=== PATIENT | female | born 1990 | race Caucasian/White ===

== ENCOUNTER 2016-09-28 19:05 | Emergency (ER) | payer SELFPAY ==
[~2016-09-28] VITALS: Ht 170.2 cm; Wt 63.6 kg
[~2016-09-28 19:05] MED LIST: AMOXICILLIN 50500 MG PO; CEFTIN500 MG PO; DIAZEPAM5 MG PO; FLAGYL500 MG PO; FLINTSTONES COM1 CT1 PO; FLINTSTONES1 CTB PO; INDERAL 10MG10 MG PO; INDERAL 20MG20 MG PO; MACROBID 1100 MG/CAP PO; MOTRIN600 MG PO; NO HOME MEDICATIONS; NORCO 325 MG-51 TAB PO; PEPCID 20MG TAB20 MG PO; PHENERGAN 25 TA25 MG PO; PHENERGAN25 MG RC; PRISTIQ50 M1 PO; SEROQUEL25 MG PO; TAPAZOLE PO; TESSALON PERLE100 MG PO; ZOFRAN 4MG T4 MG/TAB PO; ZOFRAN ODT4 MG PO; [UNRECOGNIZED DRUG - REMARK]
[2016-09-28 19:07] VITALS: BP 125/78; TEMP 98.7
[2016-09-28] MEDS ORDERED: PREDNISONE20 MG PO (20:04)
[2016-09-28] MEDS ORDERED: NORCO 325 MG-51 TAB PO (20:04)
[2016-09-28] MEDS ORDERED: FLEXERIL 1010 MG/TAB PO (20:04)
[2016-09-28 20:26] VITALS: PULSE 66
== END 2016-09-28 20:26 | disposition home or self-care (01) ==
LOC: COL.ER 19:05
DX: S73.101A Unspecified sprain of right hip, initial encounter (principal); M54.10 Radiculopathy, site unspecified; G40.909 Epilepsy, unspecified, not intractable, without status epilepticus; V18.4XXA Pedal cycle driver injured in noncollision transport accident in traffic accident, initial encounter; X50.0XXA Overexertion from strenuous movement or load, initial encounter; Y93.I9 Activity, other involving external motion; Y92.410 Unspecified street and highway as the place of occurrence of the external cause
CPT/HCPCS: J7512

== ENCOUNTER 2016-10-14 11:09 | Emergency (ER) | payer SELFPAY ==
[~2016-10-14] VITALS: Ht 170.2 cm; Wt 63.6 kg
[~2016-10-14 11:09] MED LIST changes: +FLEXERIL 1010 MG/TAB PO; +PREDNISONE20 MG PO
[2016-10-14 11:15] VITALS: BP 126/68; PULSE 118; TEMP 98.5
[2016-10-14] MEDS ORDERED: ULTRAM 50MG TAB50 MG PO (11:48)
== END 2016-10-14 11:56 | disposition home or self-care (01) ==
LOC: COL.ER 11:09
DX: M25.551 Pain in right hip (principal); F41.9 Anxiety disorder, unspecified; F43.10 Post-traumatic stress disorder, unspecified; Z98.51 Tubal ligation status; Z87.891 Personal history of nicotine dependence; Z87.39 Personal history of other diseases of the musculoskeletal system and connective tissue; Z87.19 Personal history of other diseases of the digestive system

== ENCOUNTER 2017-04-17 11:52 | Emergency (ER) | payer SELFPAY ==
[~2017-04-17] VITALS: Ht 172.7 cm; Wt 65.9 kg
[~2017-04-17 11:52] MED LIST changes: +ULTRAM 50MG TAB50 MG PO
[2017-04-17 11:59] VITALS: TEMP 98
[2017-04-17] MEDS ORDERED: ADVIL200 MG PO (12:19)
[2017-04-17 12:36] LABS: COLLECTION METHOD CLEAN CATCH
[2017-04-17 12:40] LABS: BASO # 0.1 (0.0-0.2); BASO % 0.9 % (0.0-2.0); EOS # 0.2 (0.0-0.7); EOS % 3.3 % (0-4.0); GRAN # 3.6 (1.4-6.5); GRAN % 55.1 % (42.2-75.2); HEMOGLOBIN 12.1 g/dl (12.5-16.0); LYMPH # 2.3 (1.2-3.4); LYMPH % 34.3 % (20.0-51.0); MEAN CELL VOLUME 85 fl (80.0-100.0); MEAN CORPUSCULAR HEMOGLOBIN 28 pg (27.0-31.0); MEAN CORPUSCULAR HGB CONC 33 g/dl (33.0-37.0); MEAN PLATELET VOLUME 10.8 fl (7.4-10.4); MONO # 0.4 (0.1-0.6); MONO % 6.1 % (1.7-9.3); PLATELET COUNT 264 K/mm3 (130-400); RED BLOOD COUNT 4.34 M/mm3 (4.10-5.30); REDCELL DISTRIBUTION WIDTH-CV 14.6 % (11.5-14.5)
[2017-04-17 12:43] LABS: HEMATOCRIT 36.8 % (37.0-47.0)
[2017-04-17 12:46] LABS: PH 8 (5-8); SQUAMOUS EPITHELIAL 0-2 /hpf; URINE APPEARANCE Clear; URINE BACTERIA None Seen /hpf; URINE BILIRUBIN Negative (NEGATIVE); URINE BLOOD Negative (NEGATIVE); URINE COLOR Straw; URINE GLUCOSE Negative (NEGATIVE); URINE KETONE Negative (NEGATIVE); URINE LEUKOCYTE ESTERASE Negative (NEGATIVE); URINE NITRATE Negative (NEGATIVE); URINE PROTEIN(semi-quant) Negative (NEGATIVE); URINE RBC 0-2 /hpf; URINE UROBILINOGEN Negative (NEGATIVE)
[2017-04-17 12:52] LABS: ALBUMIN 4.4 gm/dL (3.5-5.0); BILIRUBIN,TOTAL 0.4 mg/dL (0.0-1.0); C-REACTIVE PROTEIN 1.3 mg/dL (0.0-0.9); CALCIUM 9.5 mg/dL (8.4-10.2); CREATININE, serum 0.61 mg/dL (0.52-1.25); POTASSIUM 3.9 mmol/L (3.4-5.0)
[2017-04-17] MEDS ORDERED: NORCO 325 MG-51 TAB PO (15:06)
[2017-04-17 18:00] VITALS: BP 120/78; PULSE 81
== END 2017-04-17 13:56 | disposition home or self-care (01) ==
LOC: COL.ER 11:52
PROVIDERS: Emergency Medicine
DX: R10.2 Pelvic and perineal pain (principal)
CPT/HCPCS: J1170; J1885; J2405; J7030

== ENCOUNTER 2018-07-30 13:04 | Emergency (ER) | payer MEDICAID ==
[~2018-07-30] VITALS: Ht 172.7 cm; Wt 66.4 kg
[~2018-07-30 13:04] MED LIST changes: +ADVIL200 MG PO
[2018-07-30 13:16] VITALS: BP 111/76
[2018-07-30 15:25] VITALS: PULSE 80; TEMP 97.5
== END 2018-07-30 15:27 | disposition home or self-care (01) ==
LOC: COL.ER 13:04
DX: G43.909 Migraine, unspecified, not intractable, without status migrainosus (principal); M79.7 Fibromyalgia; F41.9 Anxiety disorder, unspecified; F43.10 Post-traumatic stress disorder, unspecified; Z86.19 Personal history of other infectious and parasitic diseases; Z98.51 Tubal ligation status
CPT/HCPCS: J1200; J1885; J2765; J7030

== ENCOUNTER 2019-04-13 11:21 | Emergency (ER) | payer MEDICAID ==
[~2019-04-13] VITALS: Ht 172.7 cm; Wt 65.9 kg
[2019-04-13 11:38] VITALS: TEMP 97.6
[2019-04-13 11:53] LABS: COLLECTION METHOD CLEAN CATCH
[2019-04-13 12:11] LABS: MUCOUS Present /lpf; PH 6 (5-8); SQUAMOUS EPITHELIAL 0-2 /hpf; URINE APPEARANCE Clear; URINE BACTERIA None Seen /hpf; URINE BILIRUBIN Negative (NEGATIVE); URINE BLOOD Negative (NEGATIVE); URINE COLOR Yellow; URINE GLUCOSE Negative (NEGATIVE); URINE KETONE Negative (NEGATIVE); URINE LEUKOCYTE ESTERASE Negative (NEGATIVE); URINE NITRATE Negative (NEGATIVE); URINE PROTEIN(semi-quant) Negative (NEGATIVE); URINE RBC 0-2 /hpf; URINE UROBILINOGEN Negative (NEGATIVE)
[2019-04-13 12:29] LABS: BASO # 0.1 (0.0-0.2); BASO % 0.6 % (0.0-2.0); EOS # 0.1 (0.0-0.7); EOS % 1.4 % (0-4.0); GRAN # 5.6 (1.4-6.5); GRAN % 67.7 % (42.2-75.2); HEMOGLOBIN 10.7 g/dl (12.5-16.0); LYMPH % 24.2 % (20.0-51.0); MEAN CELL VOLUME 87 fl (80.0-100.0); MEAN CORPUSCULAR HEMOGLOBIN 28 pg (27.0-31.0); MEAN CORPUSCULAR HGB CONC 32 g/dl (33.0-37.0); MEAN PLATELET VOLUME 10.1 fl (7.4-10.4); MONO # 0.4 (0.1-0.6); MONO % 4.9 % (1.7-9.3); PLATELET COUNT 255 K/mm3 (130-400); RED BLOOD COUNT 3.83 M/mm3 (4.10-5.30); REDCELL DISTRIBUTION WIDTH-CV 15.3 % (11.5-14.5)
[2019-04-13 12:36] LABS: HEMATOCRIT 33.4 % (37.0-47.0)
[2019-04-13 12:51] LABS: ALANINE AMINOTRANSFERASE 14 U/L (9-52); ALBUMIN 4.2 gm/dL (3.5-5.0); ALKALINE PHOSPHATASE 57 U/L (50-136); ANION GAP 8 mmol/L (7-16); AST,SGOT 23 U/L (15-37); BILIRUBIN,TOTAL 0.4 mg/dL (0.0-1.0); BLOOD UREA NITROGEN 12 mg/dL (7-17); CALCIUM 8.7 mg/dL (8.4-10.2); CARBON DIOXIDE 25 mmol/L (22-30); CHLORIDE 107 mmol/L (98-107); CREATININE, serum 0.66 (0.52-1.25); GLUCOSE 94 mg/dL (74-106); POTASSIUM 3.8 mmol/L (3.4-5.0); SODIUM 140 mmol/L (137-145); TOTAL PROTEIN 7.4 gm/dL (6.4-8.2)
[2019-04-13 12:54] LABS: C-REACTIVE PROTEIN < 0.5 mg/dL (0.0-0.9)
[2019-04-13 14:06] VITALS: BP 120/75; PULSE 75
== END 2019-04-13 14:08 | disposition home or self-care (01) ==
LOC: COL.ER 11:21
PROVIDERS: Emergency Medicine; Physician Assistant
DX: B34.9 Viral infection, unspecified (principal); M79.7 Fibromyalgia; Z87.891 Personal history of nicotine dependence; Z98.51 Tubal ligation status

== ENCOUNTER 2019-04-17 06:54 | Emergency (ER) | payer MEDICAID ==
[~2019-04-17] VITALS: Ht 172.7 cm; Wt 63.6 kg
[2019-04-17 07:01] VITALS: BP 114/67; TEMP 97.5
[2019-04-17 08:23] LABS: BASO % 0.4 % (0.0-2.0); EOS # 0.2 (0.0-0.7); EOS % 2.3 % (0-4.0); GRAN # 7.3 (1.4-6.5); GRAN % 76.5 % (42.2-75.2); HEMATOCRIT 35.6 % (37.0-47.0); HEMOGLOBIN 11.4 g/dl (12.5-16.0); LYMPH # 1.5 (1.2-3.4); LYMPH % 15.9 % (20.0-51.0); MEAN CELL VOLUME 86 fl (80.0-100.0); MEAN CORPUSCULAR HEMOGLOBIN 28 pg (27.0-31.0); MEAN CORPUSCULAR HGB CONC 32 g/dl (33.0-37.0); MEAN PLATELET VOLUME 10.7 fl (7.4-10.4); MONO # 0.4 (0.1-0.6); MONO % 4.5 % (1.7-9.3); PLATELET COUNT 280 K/mm3 (130-400); RED BLOOD COUNT 4.14 M/mm3 (4.10-5.30); REDCELL DISTRIBUTION WIDTH-CV 15.1 % (11.5-14.5)
[2019-04-17 08:30] LABS: ALANINE AMINOTRANSFERASE 15 U/L (9-52); ALBUMIN 4.2 gm/dL (3.5-5.0); ALKALINE PHOSPHATASE 64 U/L (50-136); ANION GAP 9 mmol/L (7-16); AST,SGOT 19 U/L (15-37); BILIRUBIN,TOTAL 0.3 mg/dL (0.0-1.0); BLOOD UREA NITROGEN 16 mg/dL (7-17); CALCIUM 8.7 mg/dL (8.4-10.2); CARBON DIOXIDE 24 mmol/L (22-30); CHLORIDE 108 mmol/L (98-107); CREATININE, serum 0.67 (0.52-1.25); GLUCOSE 101 mg/dL (74-106); POTASSIUM 3.7 mmol/L (3.4-5.0); SODIUM 141 mmol/L (137-145); TOTAL PROTEIN 7.6 gm/dL (6.4-8.2)
[2019-04-17 08:31] LABS: C-REACTIVE PROTEIN < 0.5 mg/dL (0.0-0.9)
[2019-04-17 08:37] LABS: COLLECTION METHOD CLEAN CATCH
[2019-04-17 08:50] LABS: PH 7 (5-8); SQUAMOUS EPITHELIAL 0-2 /hpf; URINE APPEARANCE Clear; URINE BACTERIA Rare /hpf; URINE BILIRUBIN Negative (NEGATIVE); URINE BLOOD 1+ (NEGATIVE); URINE COLOR Yellow; URINE GLUCOSE Negative (NEGATIVE); URINE KETONE Negative (NEGATIVE); URINE LEUKOCYTE ESTERASE Negative (NEGATIVE); URINE NITRATE Negative (NEGATIVE); URINE PROTEIN(semi-quant) Negative (NEGATIVE); URINE RBC 0-2 /hpf; URINE UROBILINOGEN Negative (NEGATIVE)
[2019-04-17] MEDS ORDERED: ZOFRAN ODT4 MG PO (08:54)
[2019-04-17 09:15] VITALS: PULSE 83
== END 2019-04-17 09:15 | disposition home or self-care (01) ==
LOC: COL.ER 06:54
PROVIDERS: Physician Assistant
DX: B34.9 Viral infection, unspecified (principal); F32.9 Major depressive disorder, single episode, unspecified; F41.9 Anxiety disorder, unspecified; Z87.891 Personal history of nicotine dependence; Z98.51 Tubal ligation status

== ENCOUNTER → 2019-10-10 | Emergency (ER) | payer MEDICAID ==
[~2019-10-10] VITALS: Ht 172.7 cm; Wt 65.9 kg
[2019-10-10 20:58] VITALS: BP 127/86; PULSE 82; TEMP 98.9
== END ==
LOC: COL.ER 20:41
DX: K08.89 Other specified disorders of teeth and supporting structures (principal)

== ENCOUNTER 2020-07-20 01:18 | Emergency (ER) | payer MEDICAID ==
[~2020-07-20] VITALS: Ht 172.7 cm; Wt 79.1 kg
[~2020-07-20 01:18] MED LIST changes: +PERCOCET 325 MG1 TA2 PO
[2020-07-20] MEDS ORDERED: TYLENOL 325MG325 MG PO (01:47)
[2020-07-20] MEDS ORDERED: MOTRIN 400400 MG/TAB PO (01:47)
[2020-07-20] MEDS ORDERED: AMOXICILLIN 8751 TAB PO (01:47)
[2020-07-20] MEDS ORDERED: ROXICODONE 55 MG/TAB PO (01:48)
[2020-07-20 02:07] VITALS: BP 126/87; PULSE 78; TEMP 98
== END 2020-07-20 02:09 | disposition home or self-care (01) ==
LOC: COL.ER 01:18
DX: K04.7 Periapical abscess without sinus (principal); Z91.040 Latex allergy status
CPT/HCPCS: J1885; J2270

== ENCOUNTER 2020-07-21 18:10 | Emergency (ER) | payer MEDICAID ==
[~2020-07-21] VITALS: Ht 172.7 cm; Wt 79.5 kg
[~2020-07-21 18:10] MED LIST changes: +AMOXICILLIN 8751 TAB PO; +MOTRIN 400400 MG/TAB PO; +ROXICODONE 55 MG/TAB PO; +TYLENOL 325MG325 MG PO
[2020-07-21 18:17] VITALS: TEMP 97.8
[2020-07-21 18:40] VITALS: BP 113/80; PULSE 75
== END 2020-07-21 18:45 | disposition home or self-care (01) ==
LOC: COL.ER 18:10
DX: K04.7 Periapical abscess without sinus (principal); Z87.891 Personal history of nicotine dependence; Z91.040 Latex allergy status
CPT/HCPCS: J1885

== ENCOUNTER 2021-06-24 20:50 | Emergency (ER) | payer MEDICAID ==
[~2021-06-24] VITALS: Ht 172.7 cm; Wt 77.3 kg
[2021-06-24 21:36] LABS: BASO % 0.7 % (0.0-2.0); EOS # 0.1 K/mm3 (0.0-0.7); EOS % 2.1 % (0.0-4.0); HEMATOCRIT 37.7 % (37.0-47.0); HEMOGLOBIN 12.8 g/dl (12.5-16.0); LYMPH # 2.3 K/mm3 (1.2-3.4); LYMPH % 38.9 % (20.0-51.0); MEAN CELL VOLUME 83 fl (80.0-100.0); MEAN CORPUSCULAR HEMOGLOBIN 28 pg (27-31); MEAN CORPUSCULAR HGB CONC 34 g/dl (33.0-37.0); MONO # 0.4 K/mm3 (0.1-0.6); PLATELET COUNT 325 K/mm3 (130-400); RED BLOOD COUNT 4.57 M/mm3 (4.10-5.30); REDCELL DISTRIBUTION WIDTH-CV 14.1 % (11.5-14.5)
[2021-06-24 21:54] LABS: ALANINE AMINOTRANSFERASE 64 U/L (0-55); ALKALINE PHOSPHATASE 69 U/L (40-150); ANION GAP 13 mmol/L (7-16); AST,SGOT 63 U/L (5-34); BILIRUBIN,TOTAL 0.2 mg/dL (0.2-1.2); BLOOD UREA NITROGEN 12 mg/dL (7-19); CALCIUM 8.9 mg/dL (8.4-10.2); CARBON DIOXIDE 21 mmol/L (22-29); CHLORIDE 105 mmol/L (98-107); CREATININE, serum 0.82 mg/dL (0.57-1.11); GLUCOSE 111 mg/dL (70-99); POTASSIUM 3.4 mmol/L (3.5-4.5); SODIUM 139 mmol/L (136-145); TOTAL PROTEIN 8.1 gm/dL (6.2-8.1)
[2021-06-24 22:04] LABS: TROPONIN-I < 0.010 ng/mL (0.00-0.033)
[2021-06-24] MEDS ORDERED: ZOFRAN ODT4 MG PO (22:13)
[2021-06-24 23:09] VITALS: BP 114/78; PULSE 61; TEMP 97.8
== END 2021-06-24 23:12 | disposition home or self-care (01) ==
LOC: COL.ER 20:50
PROVIDERS: Emergency Medicine
DX: R50.9 Fever, unspecified (principal); F17.200 Nicotine dependence, unspecified, uncomplicated; R00.0 Tachycardia, unspecified; E87.6 Hypokalemia; R94.5 Abnormal results of liver function studies; R11.2 Nausea with vomiting, unspecified; Z20.822 Contact with and (suspected) exposure to COVID-19
CPT/HCPCS: J1885; J2405; J7030

== ENCOUNTER 2021-08-16 21:26 | Emergency (ER) | payer MEDICAID ==
[~2021-08-16] VITALS: Ht 172.7 cm; Wt 65.9 kg
[2021-08-16] MEDS ORDERED: FLEXERIL 1010 MG/TAB PO (22:44)
[2021-08-16] MEDS ORDERED: MEDROL 4MG DOSPA4 MG PO (22:44)
[2021-08-16 23:32] VITALS: BP 123/95; PULSE 89; TEMP 98.5
== END 2021-08-16 23:32 | disposition home or self-care (01) ==
LOC: COL.ER 21:26
DX: M54.16 Radiculopathy, lumbar region (principal); Z91.040 Latex allergy status; Z28.311 Partially vaccinated for COVID-19
CPT/HCPCS: J1885; J2360

== ENCOUNTER 2021-10-26 21:42 | Emergency (ER) | payer MEDICAID ==
[~2021-10-26] VITALS: Ht 172.7 cm; Wt 68.2 kg
[~2021-10-26 21:42] MED LIST changes: +MEDROL 4MG DOSPA4 MG PO
[2021-10-26 21:59] VITALS: TEMP 98
[2021-10-26 23:23] LABS: COLLECTION METHOD CLEAN CATCH
[2021-10-26 23:26] LABS: BASO # 0.1 K/mm3 (0.0-0.2); BASO % 0.6 % (0.0-2.0); EOS # 0.1 K/mm3 (0.0-0.7); EOS % 1.2 % (0.0-4.0); GRAN # 6.9 K/mm3 (1.4-6.5); GRAN % 62.1 % (42.2-75.2); HEMATOCRIT 39.2 % (37.0-47.0); HEMOGLOBIN 13.2 g/dl (12.5-16.0); LYMPH # 3.5 K/mm3 (1.2-3.4); MEAN CELL VOLUME 85 fl (80.0-100.0); MEAN CORPUSCULAR HEMOGLOBIN 29 pg (27-31); MEAN CORPUSCULAR HGB CONC 34 g/dl (33.0-37.0); MEAN PLATELET VOLUME 9.9 fl (7.4-10.4); MONO # 0.5 K/mm3 (0.1-0.6); MONO % 4.8 % (1.7-9.3); PLATELET COUNT 321 K/mm3 (130-400); RED BLOOD COUNT 4.63 M/mm3 (4.10-5.30); REDCELL DISTRIBUTION WIDTH-CV 14.5 % (11.5-14.5)
[2021-10-26 23:32] LABS: SQUAMOUS EPITHELIAL 0-2 /hpf (0-10); URINE APPEARANCE Clear (CLEAR/HAZY); URINE BACTERIA None Seen /hpf (NONE SEEN); URINE COLOR Yellow (YELLOW); URINE RBC 0-2 /hpf (0-2)
[2021-10-26 23:33] LABS: PH 5.5 (5.0-8.5); URINE BLOOD Negative (NEGATIVE); URINE GLUCOSE Negative (NEGATIVE); URINE KETONE Negative (NEGATIVE); URINE NITRATE Negative (NEGATIVE); URINE PROTEIN(semi-quant) Negative (NEGATIVE); URINE UROBILINOGEN 0.2 E.U/dL (0.2-1.0)
[2021-10-26 23:49] LABS: BILIRUBIN,TOTAL 0.3 mg/dL (0.2-1.2); CALCIUM 9.6 mg/dL (8.4-10.2); CREATININE, serum 0.8 mg/dL (0.57-1.11); POTASSIUM 3.5 mmol/L (3.5-4.5)
[2021-10-27] MEDS ORDERED: NORCO 325 MG-51 TAB PO (01:26)
[2021-10-27] MEDS ORDERED: ZOFRAN ODT4 MG PO (01:26)
[2021-10-27 01:52] VITALS: BP 116/65; PULSE 53
== END 2021-10-27 01:42 | disposition home or self-care (01) ==
LOC: COL.ER 21:42
PROVIDERS: Personal Emergency Response Attendant
DX: B34.9 Viral infection, unspecified (principal); M79.7 Fibromyalgia; R55 Syncope and collapse; Z91.040 Latex allergy status; Z28.311 Partially vaccinated for COVID-19
CPT/HCPCS: J2270; J2405; J7030

== ENCOUNTER 2022-06-17 15:13 | Emergency (ER) | payer MEDICAID ==
[~2022-06-17] VITALS: Ht 172.7 cm; Wt 90.9 kg
[2022-06-17 15:26] VITALS: TEMP 98.4
[2022-06-17 15:45] LABS: COLLECTION METHOD CLEAN CATCH
[2022-06-17 16:08] LABS: BASO # 0.1 K/mm3 (0.0-0.2); BASO % 0.7 % (0.0-2.0); EOS # 0.2 K/mm3 (0.0-0.7); EOS % 1.6 % (0.0-4.0); GRAN # 7.2 K/mm3 (1.4-6.5); GRAN % 68.2 % (42.2-75.2); HEMATOCRIT 37.9 % (37.0-47.0); HEMOGLOBIN 13.3 g/dl (12.5-16.0); LYMPH # 2.5 K/mm3 (1.2-3.4); LYMPH % 23.6 % (20.0-51.0); MEAN CELL VOLUME 85 fl (80.0-100.0); MEAN CORPUSCULAR HEMOGLOBIN 30 pg (27-31); MEAN CORPUSCULAR HGB CONC 35 g/dl (33.0-37.0); MEAN PLATELET VOLUME 10.8 fl (7.4-10.4); MONO # 0.6 K/mm3 (0.1-0.6); MONO % 5.6 % (1.7-9.3); PLATELET COUNT 290 K/mm3 (130-400); RED BLOOD COUNT 4.48 M/mm3 (4.10-5.30); REDCELL DISTRIBUTION WIDTH-CV 13.2 % (11.5-14.5)
[2022-06-17 16:11] LABS: PH 6.5 (5.0-8.5); URINE APPEARANCE Clear (CLEAR/HAZY); URINE COLOR Yellow (YELLOW); URINE GLUCOSE Negative (NEGATIVE); URINE PROTEIN(semi-quant) 1+ (NEGATIVE)
[2022-06-17 16:12] LABS: URINE BLOOD Negative (NEGATIVE); URINE KETONE TRACE (NEGATIVE); URINE NITRATE Negative (NEGATIVE); URINE UROBILINOGEN 0.2 E.U/dL (0.2-1.0)
[2022-06-17 16:15] LABS: MUCOUS Present (NOT PRESENT); URINE BACTERIA None Seen /hpf (NONE SEEN); URINE RBC 0-2 /hpf (0-2)
[2022-06-17 16:16] LABS: TRICYCLIC ANTIDEPRESS URINE NEGATIVE
[2022-06-17 16:26] LABS: ACETAMINOPHEN < 1.0 ug/mL (10-30); ALANINE AMINOTRANSFERASE 40 U/L (0-55); ALBUMIN 3.8 gm/dL (3.5-5.0); ALCOHOL(ethanol),MEDICAL < 10 mg/dL (0-10); ALKALINE PHOSPHATASE 62 U/L (40-150); ANION GAP 10 mmol/L (7-16); AST,SGOT 21 U/L (5-34); BILIRUBIN,TOTAL 0.5 mg/dL (0.2-1.2); BLOOD UREA NITROGEN 9 mg/dL (7-19); CALCIUM 9.3 mg/dL (8.4-10.2); CARBON DIOXIDE 19 mmol/L (22-29); CHLORIDE 110 mmol/L (98-107); CREATININE, serum 0.84 mg/dL (0.57-1.11); GLUCOSE 116 mg/dL (70-99); POTASSIUM 3.8 mmol/L (3.5-4.5); SALICYLATE < 5.0 mg/dL (15.0-30.0); SODIUM 139 mmol/L (136-145); TOTAL PROTEIN 7.4 gm/dL (6.2-8.1)
[2022-06-18 01:50] VITALS: BP 111/78; PULSE 74
== END 2022-06-18 01:53 ==
LOC: COL.ER
PROVIDERS: Physician Assistant
DX: R45.851 Suicidal ideations (principal); R44.0 Auditory hallucinations; R44.1 Visual hallucinations; Z91.040 Latex allergy status; Z86.59 Personal history of other mental and behavioral disorders; Z28.310 Unvaccinated for COVID-19

== ENCOUNTER 2022-08-17 14:16 | Emergency (ER) | payer OTHER, MEDICAID ==
[~2022-08-17] VITALS: Ht 172.7 cm; Wt 85.5 kg
[2022-08-17 14:22] VITALS: TEMP 98.1
[2022-08-17] MEDS ORDERED: NORCO 325 MG-51 TAB PO (16:03)
[2022-08-17] MEDS ORDERED: FLEXERIL 1010 MG/TAB PO (16:03)
[2022-08-17] MEDS ORDERED: PREDNISONE50 MG PO (16:03)
[2022-08-17 16:30] VITALS: BP 128/76; PULSE 86
== END 2022-08-17 16:31 | disposition home or self-care (01) ==
LOC: COL.ER 14:16
DX: M54.16 Radiculopathy, lumbar region (principal); Z91.040 Latex allergy status; Z28.310 Unvaccinated for COVID-19; X50.0XXA Overexertion from strenuous movement or load, initial encounter; Y92.59 Other trade areas as the place of occurrence of the external cause; Y99.0 Civilian activity done for income or pay
CPT/HCPCS: J7512